=== PATIENT | female | born 1970 | race Caucasian/White ===

== ENCOUNTER 2017-05-29 14:54 | Emergency (ER) | payer OTHER ==
[2017-05-29] MEDS ORDERED: IPRATROPIUM-ALBUTEROL 3 ML NEB INHALATION STA (16:59)
[2017-05-29] MEDS ORDERED: PROMETHAZ-COD 6.25-10 MG/5 ML 5 ML CUP PO STA (17:00)
[2017-05-29] MEDS ORDERED: KETOROLAC 30 MG/ML 1 ML VIAL IVP STA (17:00)
--- NOTE | 2017-05-29 17:25 | ED ---
General Adult HPI - General Chief complaint: Back Pain/Injury Stated complaint: lump in throat/asthma Time Seen by Provider: 05/29/17 16:14 Source: patient, RN notes reviewed Mode of arrival: ambulatory Limitations: no limitations - History of Present Illness Initial comments: 46-year-old female presents for cough, shortness of breath. She states she has a history of asthma. She states that she is also smoker. She's had this cough and now she is getting full pain all her ribs and her chest and her back hurts every time she coughs. She states that she has muscle spasms due to the cough. She denies any fever chills. She denies any sputum production with the cough. She states just does not feel like she is getting good breaths. And she just has his continued cough. She states that there hasn't been any high fevers. She was concerned due to the continued shortness of breath and now the muscle soreness from coughing so much so she thought that she should be seen. Patient denies any recent fever, chills, back pain, abdominal pain, nausea vomiting, numbness or tingling, dysuria or hematuria, constipation or diarrhea, headaches or visual changes, or any other current symptoms. - Related Data Home Medications Medication Instructions Recorded Confirmed Albuterol Inhaler [Ventolin Hfa 1 - 2 puff INHALATION RT-Q6H PRN 05/29/17 Inhaler] Colestipol HCl [Colestid] 1 gm PO Q4H 05/29/17 05/29/17 Naproxen 500 mg PO DAILY PRN 05/29/17 05/29/17 SUMAtriptan SUCCINATE [Imitrex] 100 mg PO DAILY PRN 05/29/17 05/29/17 Previous Rx's Medication Instructions Recorded Albuterol Inhaler [Ventolin Hfa 1 - 2 puff INHALATION Q4-6H PRN #1 05/29/17 Inhaler] inhaler Ibuprofen [Motrin] 600 mg PO Q6HR PRN #20 tab 05/29/17 Promethaz-Cod 6.25-10 mg/5 ml 5 ml PO Q4HR PRN #30 ml 05/29/17 [Phenergan with Codeine] predniSONE 50 mg PO DAILY #5 tab 05/29/17 Allergies Allergy/AdvReac Type Severity Reaction Status Date / Time azithromycin Allergy Rash/Hives Verified 05/29/17 16:16 cyclobenzaprine Allergy Unknown Verified 05/29/17 17:12 [From Flexeril] Nmdhawv-Lyl-Vpk Reductase Allergy Unknown Verified 05/29/17 16:16 Inhibitor diazepam [From Valium] AdvReac Unknown Verified 05/29/17 16:16 Review of Systems ROS Statement: Those systems with pertinent positive or pertinent negative responses have been documented in the HPI. ROS Other: All systems not noted in ROS Statement are negative. Past Medical History Past Medical History: Asthma, Hyperlipidemia Additional Past Medical History / Comment(s): atrial tachycardia History of Any Multi-Drug Resistant Organisms: None Reported Past Surgical History: Ablation, Section, Hysterectomy, Tonsillectomy Past Psychological History: No Psychological Hx Reported Smoking Status: Current every day smoker Past Alcohol Use History: Rare Past Drug Use History: Marijuana General Exam - General Exam Comments Initial Comments: General: The patient is awake and alert, in no distress, and does not appear acutely ill. Eye: Pupils are equal, round and reactive to light, extra-ocular movements are intact; there is normal conjunctiva bilaterally. No signs of icterus. Ears, nose, mouth and throat: There are moist mucous membranes and no oral lesions. Neck: The neck is supple, there is no tenderness. Cardiovascular: There is a regular rate and rhythm. No murmur, rub or gallop is appreciated. Respiratory: Lungs are clear to auscultation, respirations are non-labored, breath sounds are equal. No wheezes, stridor, rales, or rhonchi. Diffuse tenderness to palpation throughout the chest wall. Gastrointestinal: Soft, non-distended, non-tender abdomen without masses or organomegaly noted. There is no rebound or guarding present. No CVA tenderness. Bowel sounds are unremarkable. Back: There is no tenderness to palpation in the midline. There is no obvious deformity. No rashes noted. Musculoskeletal: Normal ROM, no tenderness, There is no pedal edema. There is no calf tenderness or swelling. Sensation intact. Pulses equal bilaterally 2+. Neurological: CN II-XII intact, There are no obvious motor or sensory deficits. Coordination appears grossly intact. Speech is normal. Skin: Skin is warm and dry and no rashes or lesions are noted. Psychiatric: Cooperative, appropriate mood & affect, normal judgment. Limitations: no limitations Course Vital Signs 05/29/17 05/29/17 15:28 17:25 Temperature 98.4 F Pulse Rate 91 83 Respiratory 18 20 Rate Blood Pressure 141/73 136/64 O2 Sat by Pulse 98 96 Oximetry EKG Findings - EKG Comments: EKG Findings:: normal sinus rhythm 80 bpm, normal axis, no atopy, no S-T depressions or elevations, Medical Decision Making - Medical Decision Making 46-year-old female presents emergency department with a chief complaint of cough and shortness of breath with what appears to be a costochondritis. At this time patient has improved with the cough medication. Patient signed by Dr. Campo. This time patient appears to have acute bronchitis. We'll put patient on steroids the inhaler. We did discuss close follow-up with her doctor we discussed return parameters all questions. Patient stated she understood and she is agreement this plan. All questions have been answered. She will be discharged. - Lab Data Result diagrams: 05/29/17 17:08 05/29/17 17:08 Lab Results 05/29/17 05/29/17 05/29/17 Range/Units 17:08 17:08 17:08 WBC 9.7 (3.8-10.6) k/uL RBC 4.95 (3.80-5.40) m/uL Hgb 14.9 (11.4-16.0) gm/dL Hct 47.9 H (34.0-46.0) % MCV 96.8 (80.0-100.0) fL MCH 30.1 (25.0-35.0) pg MCHC 31.1 (31.0-37.0) g/dL RDW 12.8 (11.5-15.5) % Plt Count 286 (150-450) k/uL Neutrophils % 60 % Lymphocytes % 29 % Monocytes % 6 % Eosinophils % 4 % Basophils % 1 % Neutrophils # 5.8 (1.3-7.7) k/uL Lymphocytes # 2.8 (1.0-4.8) k/uL Monocytes # 0.5 (0-1.0) k/uL Eosinophils # 0.3 (0-0.7) k/uL Basophils # 0.1 (0-0.2) k/uL Sodium 142 (137-145) mmol/L Potassium 4.0 (3.5-5.1) mmol/L Chloride 105 (98-107) mmol/L Carbon Dioxide 27 (22-30) mmol/L Anion Gap 10 mmol/L BUN 15 (7-17) mg/dL Creatinine 0.89 (0.52-1.04) mg/dL Est GFR (MDRD) Af Amer >60 (>60 ml/min/1.73 sqM) Est GFR (MDRD) Non-Af >60 (>60 ml/min/1.73 sqM) Glucose 90 (74-99) mg/dL Calcium 9.8 (8.4-10.2) mg/dL Total Bilirubin 0.3 (0.2-1.3) mg/dL AST 23 (14-36) U/L ALT 33 (9-52) U/L Alkaline Phosphatase 57 (38-126) U/L Total Protein 7.1 (6.3-8.2) g/dL Albumin 4.5 (3.5-5.0) g/dL Influenza Type A RNA Not Detected (Not Detectd) Influenza Type B (PCR) Not Detected (Not Detectd) - Radiology Data Radiology results: report reviewed, image reviewed Disposition Clinical Impression: Costochondral chest pain, Acute bronchitis Disposition: HOME SELF-CARE Condition: Stable Instructions: Costochondritis (ED), Acute Bronchitis (ED) Additional Instructions: Please use medication as discussed. Please follow up with family doctor if symptoms have not improved over the next two days. Please return to the emergency room if your symptoms increase or worsen or for any other concerns. Prescriptions: Albuterol Inhaler [Ventolin Hfa Inhaler] 1 - 2 puff INHALATION Q4-6H PRN #1 inhaler PRN Reason: Cough Ibuprofen [Motrin] 600 mg PO Q6HR PRN #20 tab PRN Reason: Pain predniSONE 50 mg PO DAILY #5 tab Promethaz-Cod 6.25-10 mg/5 ml [Phenergan with Codeine] 5 ml PO Q4HR PRN #30 ml PRN Reason: Cough Referrals: Pooja Ceja MD [Primary Care Provider] - 1-2 days Time of Disposition: 18:49
[2017-05-29 17:33] LABS: Basophils # (A) 0.1 k/uL (0-0.2); Basophils % (A) 1 %; Eosinophils # (A) 0.3 k/uL (0-0.7); Eosinophils % (A) 4 %; HCT 47.9 % (34.0-46.0); HGB 14.9 gm/dL (11.4-16.0); Lymphocytes # (A) 2.8 k/uL (1.0-4.8); Lymphocytes % (A) 29 %; MCH 30.1 pg (25.0-35.0); MCHC 31.1 g/dL (31.0-37.0); MCV 96.8 fL (80.0-100.0); Mean Platelet Volume 7.2; Monocytes # (A) 0.5 k/uL (0-1.0); Monocytes % (A) 6 %; Neutrophils # (A) 5.8 k/uL (1.3-7.7); Neutrophils % (A) 60 %; Platelet Count 286 k/uL (150-450); RBC 4.95 m/uL (3.80-5.40); RDW 12.8 % (11.5-15.5); WBC 9.7 k/uL (3.8-10.6)
[2017-05-29 17:47] LABS: ALT 33 U/L (9-52); AST 23 U/L (14-36); Albumin 4.5 g/dL (3.5-5.0); Alkaline Phosphatase 57 U/L (38-126); Anion Gap 10 mmol/L; Blood Urea Nitrogen 15 mg/dL (7-17); Calcium 9.8 mg/dL (8.4-10.2); Carbon Dioxide 27 mmol/L (22-30); Chloride 105 mmol/L (98-107); Glucose 90 mg/dL (74-99); Sodium 142 mmol/L (137-145); Total Bilirubin 0.3 mg/dL (0.2-1.3); Total Protein 7.1 g/dL (6.3-8.2)
--- NOTE | 2017-05-29 17:52 | XR ---
EXAMINATION TYPE: XR chest 2V DATE OF EXAM: 05/29/2017 COMPARISON: NONE HISTORY: Arrhythmia and chest pain TECHNIQUE: Frontal and lateral views of the chest are obtained. FINDINGS: There is no focal air space opacity, pleural effusion, or pneumothorax seen. The cardiac silhouette size is within normal limits. The osseous structures are intact. IMPRESSION: No acute cardiopulmonary process.
[2017-05-29 19:14] VITALS: BP 114/59; PULSE 91; RESP 18; TEMP 98
== END 2017-05-29 19:13 | disposition home or self-care (01) ==
LOC: EC 14:54
DX: J20.9 Acute bronchitis, unspecified (principal); E78.5 Hyperlipidemia, unspecified; F17.200 Nicotine dependence, unspecified, uncomplicated; J45.909 Unspecified asthma, uncomplicated; Z79.899 Other long term (current) drug therapy; Z88.1 Allergy status to other antibiotic agents; Z88.8 Allergy status to other drugs, medicaments and biological substances
CPT/HCPCS: 36415; 94640; 93005; 80053; 85025; 87502; 71046; 99284; 96374; J1885